=== PATIENT | female | born 1940 | race Native Hawaiian/Other Pacific Islander ===

== ENCOUNTER 2017-04-19 14:20 | Outpatient (CLI) | payer OTHER | END 2017-04-19 14:23 | disposition short-term general hospital (02) | LOC: AMB 14:20 | DX: M25.562 Pain in left knee (principal); M25.521 Pain in right elbow; W01.0XXA Fall on same level from slipping, tripping and stumbling without subsequent striking against object, initial encounter; Y92.481 Parking lot as the place of occurrence of the external cause | CPT/HCPCS: A0425; A0429 ==

== ENCOUNTER 2017-04-19 14:30 | Emergency (ER) | payer OTHER ==
[~2017-04-19] VITALS: Ht 154.9 cm; Wt 99.8 kg
== END 2017-04-19 19:15 | disposition home or self-care (01) ==
LOC: ED 14:30
DX: M25.562 Pain in left knee (principal); W18.39XA Other fall on same level, initial encounter; Y92.481 Parking lot as the place of occurrence of the external cause
CPT/HCPCS: 99283; J1885; L1830

== ENCOUNTER 2021-05-08 10:01 | Emergency (ER) | payer OTHER ==
[~2021-05-08] VITALS: Ht 160 cm; Wt 97.5 kg
[2021-05-08 10:01] VITALS: TEMP 98.4
[2021-05-08 13:00] VITALS: BP 182/81
== END 2021-05-08 13:15 | disposition home or self-care (01) ==
LOC: ED 10:01
DX: S70.01XA Contusion of right hip, initial encounter (principal); S30.0XXA Contusion of lower back and pelvis, initial encounter; W18.39XA Other fall on same level, initial encounter; Y92.098 Other place in other non-institutional residence as the place of occurrence of the external cause
CPT/HCPCS: 96372; 99283; J1885

== ENCOUNTER 2021-05-24 12:16 | Outpatient (CLI) | payer OTHER | END 2021-05-24 19:17 | disposition home or self-care (01) | LOC: CT 12:16 | PROVIDERS: ATTEND Nurse Practitioner Family | DX: M25.551 Pain in right hip (principal); W19.XXXA Unspecified fall, initial encounter ==